=== PATIENT | female | born 1965 | race Caucasian/White ===

== ENCOUNTER 2018-02-05 13:20 | Emergency (ER) | payer OTHER ==
[~2018-02-05] VITALS: Ht 149.9 cm; Wt 58.1 kg
--- NOTE | 2018-02-05 13:29 | ED GI/GU/ABDOMINAL COMPLAINT ---
History of Present Illness General Chief Complaint: Abdominal Pain/Flank Pain Stated Complaint: RT SIDED ABD PAIN Source: patient Exam Limitations: no limitations Vital Signs & Intake/Output Vital Signs & Intake/Output Vital Signs Date Time Temp Pulse Resp B/P B/P Pulse O2 O2 Flow FiO2 Mean Ox Delivery Rate 02/05 1846 98.1 72 18 136/68 98 Room Air 02/05 1843 97.6 69 18 129/60 99 Room Air 02/05 1645 97.8 74 16 144/77 99 Room Air 02/05 1322 97.8 90 16 96 Room Air Allergies Coded Allergies: Sulfa (Sulfonamide Antibiotics) (Severe, SWELLING 02/05/18) Reconcile Medications Hydrocodone/Acetaminophen (Greenwood 5-325 Tablet) 5 MG-325 MG TABLET 1-2 TAB PO Q4-6 PRN PRN pain Ibuprofen 800 MG TABLET 1 TAB PO TID PRN mild to moderate pain Ondansetron (Zofran Odt) 4 MG TAB.RAPDIS 1 TAB SL TID PRN nausea Triage Note: 52 Y/O FEMALE C/O RLQ PAIN SINCE 0500 THIS MORNING, WOKE PT FROM SLEEP. PT STATES THE PAIN WRAPS INTO R GROIN AND R FLANK. +NAUSEA YESTERDAY. REPORTS POOR APPETITE/PO INTAKE TODAY. PAIN WORSE WITH URINATION PER PT. APPEARS UNCOMFORTABLE. AFEBRILE. Triage Nurses Notes Reviewed? yes ? n Is pt currently ? No Onset: Abrupt Duration: hour(s): (8) Timing: no prior history Quality/Severity: sharpness Severity Numbers: 7 Location: right lower quadrant Radiation: no radiation Activities at Onset: none Prior Abdominal Problems: none Past Sexual History: Unobtainable at this time No Modifying Factors: none HPI: Patient is a 52-year-old female presenting to the emergency department with chief complaint of right lower quadrant pain that began suddenly this morning after she woke up. Pain is sharp and stabbing and nonradiating. Positive nausea but no vomiting. Denies taking anything to help with pain. Pain is moderate. No diarrhea. Positive dysuria. No hematuria. No history kidney stone. (Eloina Arita) Past History Travel History Traveled to [place] past 21 day No Medical History Any Pertinent Medical History? 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 No (Eloina Arita) Review of Systems Review of Systems Constitutional: Reports: no symptoms. Comments Review of systems: See HPI, All other systems negative. Constitutional, no chills fever or weight loss HEENT: No visual changes no sore throat no congestion Cardiovascular: No chest pain ,palpitation , orthopnea or ankle swelling Skin, no jaundice no rashes Respiratory: No dyspnea cough sputum or hemoptysis GI: no vomiting : No dysuria No hematuria Muscle skeletal: no back pain, no neck pain, Neurologic: No numbness no confusion no headches Psych: No stress anxiety or depression,. Heme/endocrine: No bruising no bleeding no polyuria or polydipsia Immunology: No splenectomy or history of AIDS (Eloina Arita) Physical Exam Physical Exam General Appearance: alert, awake, appears uncomfortable Gastrointestinal: tenderness Comments: Well-developed well-nourished person in no acute distress HEENT: Atraumatic, normocephalic Neck: Normal inspection Back: Nontender, no CVA tenderness. Cardiovascular: Regular rate and rhythms no murmurs rubs or gallops Respiratory: Chest nontender. No respiratory distress.breath sounds clear to auscultation bilaterally Abdomen: Soft, tender to palpation over the right lower quadrant with guarding, positive rebound tenderness. Nondistended, no appreciable organomegaly. Normal bowel sounds. No ascites Extremity: No edema Neuro: Alert oriented x3 Skin: No appreciable rash on exposed skin, skin is warm and dry. Psych: Mood and affect is normal, memory and judgment is normal. Core Measures ACS in differential dx? No Sepsis Present: No Sepsis Focused Exam Completed? No (Eloina Arita) Progress Differential Diagnosis: appendicitis, biliary colic, cholecystitis, gastritis, hepatitis, hernia, ovarian cyst, UTI/pyelo Plan of Care: Orders Procedure Date/time Status URINALYSIS 02/05 1329 Complete C-REACTIVE PROTEIN 02/05 1329 Complete COMPREHENSIVE METABOLIC PANEL 02/05 1329 Complete CBC WITHOUT DIFFERENTIAL 02/05 1329 Complete Laboratory Tests 02/05/18 1403: Anion Gap 11, Estimated GFR > 60, BUN/Creatinine Ratio 21.4, Glucose 80, Calcium 9.5, Total Bilirubin 0.7, AST 24, ALT 24, Alkaline Phosphatase 66, C-Reactive Prot, Quant 1.1 H, Total Protein 7.7, Albumin 4.4, Globulin 3.3, Albumin/ Globulin Ratio 1.3, CBC w Diff NO MAN DIFF REQ, RBC 4.00 L, MCV 87.9, MCH 29.6, MCHC 33.7, RDW 13.0, MPV 7.7, Gran % 72.1, Lymphocytes % 20.4 L, Monocytes % 6.6, Eosinophils % 0.8, Basophils % 0.1, Absolute Granulocytes 7.1 H, Absolute Lymphocytes 2.0, Absolute Monocytes 0.6, Absolute Eosinophils 0.1, Absolute Basophils 0, Urine Color YEL, Urine Clarity CLEAR, Urine pH 6.0, Ur Specific [place] <= 1.005, Urine Protein NEG, Urine Ketones NEG, Urine Nitrite NEG, Urine Bilirubin NEG, Urine Urobilinogen 0.2, Ur Leukocyte Esterase NEG, Ur Microscopic EXAM NOT REQUIRED, Urine Hemoglobin NEG, Urine Glucose NEG Patient feeling improved after IV pain medication. She is informed of CAT scan and ultrasound results. She'll follow up with her PIPELINER. started on pain medication, nausea medication and anti-inflammatories at home. Patient nontoxic. No signs of appendicitis. Diagnostic Imaging: Viewed by Me: CT Scan, Ultrasound. Discussed w/RAD: CT Scan, Ultrasound. Radiology Impression: PATIENT: PROSPER TREVINO PRESENT AGE : 52 PATIENT ACCOUNT NO: [id number] : 67 LOCATION: [facility] ORDERING PHYSICIAN: Eloina REN SERVICE DATE: 02/05/186765 EXAM TYPE: CAT - CT ABD & PELVIS W IV CONTRAST EXAMINATION: CT ABDOMEN AND PELVIS WITH CONTRAST CLINICAL INFORMATION: Evaluate for appendicitis, pain COMPARISON: None TECHNIQUE : Multidetector volumetric imaging was performed of the abdomen and pelvis following IV administration of 100 mL of Omnipaque 300 intravenous contrast. Sagittal and coronal reformatted images were obtained on the technologist's workstation. FINDINGS: The lung bases are grossly clear. Upper abdomen Liver and spleen are felt to be within normal limits. Status post cholecystectomy. Pancreas within normal limits. Mild intrahepatic ductal dilatation and mild prominence of the common duct however the patient is status post cholecystectomy. Area the adrenal glands is unremarkable. There is no bulky adenopathy. There is no free fluid here. The bowel pattern is within normal limits. The kidneys are in the early nephrographic phase. Within normal limits. There is a metallic density between the superior aspect of the right kidney in the liver which may represent a migrated surgical clip. CT PELVIS: The appendix is felt to be within normal limits. There is cystic change in the right adnexa. This is measuring 4.4 x 3.2 cm. Minimal surrounding fluid is noted. The uterus is central. IMPRESSION: The appendix is within normal orbits. The bowel pattern is within normal limits. Cystic change in the right adnexa which may well be ovarian. Minimal surrounding fluid. Consider ultrasound Probable migrated metallic clip is described in between the superior aspect of the right kidney and the liver. DICTATED BY: Karlos Bateman MD DATE/TIME DICTATED:02/05/181538 PROPERTY ANALYST:ESAU DATE/TIME TRANSCRIBED:02/05/181538 CONFIDENTIAL, DO NOT COPY WITHOUT APPROPRIATE AUTHORIZATION. <Electronically signed in Other Vendor System> SIGNED BY: Karlos Bateman MD 02/05/18 1550, PATIENT: PROSPER TREVINO PRESENT AGE: 52 PATIENT ACCOUNT NO: [id number] : 67 LOCATION: [facility] ORDERING PHYSICIAN: Eloina REN SERVICE DATE: 02/05/18-155 EXAM TYPE: US - US-TRANSVAGINAL US PELVIC TRANSVAGINAL CLINICAL INFORMATION: Right lower quadrant pain. COMPARISON: Abdominal CT performed earlier the same day. TECHNIQUE: Real-time transabdominal and then transvaginal ultrasound are performed, the latter for better visualization. Grayscale, color Doppler, and spectral Doppler analysis are performed. FINDINGS: The uterus is anteroverted and measures 8.1 x 4.6 x 4.8 cm. Cervical length is 3.1 cm. Endometrial stripe thickness is 0.5 cm. Total uterine volume is 93.1 mL. Right ovary measures 4.1 x 3.1 x 5.2 cm with a volume of 34.2 mL. There is a 3.2 x 2.3 x 3.2 cm complex cyst exhibiting low level echoes within the right ovary that may reflect a hemorrhagic cyst or endometrioma. The right ovary exhibits normal arterial and venous waveforms. The left ovary is not identified. IMPRESSION: - There is a 3.2 x 2.3 x 3.2 cm complex right ovarian cyst exhibiting low level echoes that may reflect a hemorrhagic cyst or endometrioma. There is no sonographic evidence of active ovarian torsion. - The left ovary is not visualized. DICTATED BY: Karlos Mclean MD DATE/TIME DICTATED :02/05/181805 PROPERTY ANALYST:ESAU DATE/TIME TRANSCRIBED:02/05/181805 CONFIDENTIAL, DO NOT COPY WITHOUT APPROPRIATE AUTHORIZATION. < Electronically signed in Other Vendor System> SIGNED BY: Karlos Mclean MD 02/05/181813 Initial ED EKG: none (Eloina Arita) Departure Departure Time of Disposition: 1821 Disposition: HOME OR SELF CARE Condition: Stable Clinical Impression Primary Impression: Ovarian cyst Qualifiers: Laterality: right Qualified Code: N83.201 - Unspecified ovarian cyst, right side Referrals: Unknown Homero Escalera MD Additional Instructions: Follow-up with PIPELINER, call to make an appointment for next 5-7 days. Increase fluids. Take ibuprofen to help with pain and inflammation, for severe pain take Greenwood as prescribed. Take Zofran as prescribed for nausea. Return for worsening symptoms or concerns. Departure Forms: Customer Survey General Discharge Information Prescriptions: Current Visit Scripts Hydrocodone/Acetaminophen ([place]wood 5-325 Tablet) 1-2 TAB PO Q4-6 PRN PRN pain #10 TAB Ondansetron (Zofran Odt) 1 TAB SL TID PRN nausea #10 TAB Ibuprofen 1 TAB PO TID PRN mild to moderate pain #20 TAB (Eloina Arita) PA/COMMERCIAL CREDIT HEAD Co-Sign Statement Statement: ED Attending supervision documentation- [] I saw and evaluated the patient. I have also reviewed all the pertinent lab results and diagnostic results. I agree with the findings and the plan of care as documented in the PA's/COMMERCIAL CREDIT HEAD's documentation. [x] I have reviewed the ED Record and agree with the PA's/COMMERCIAL CREDIT HEAD's documentation. [] Additions or exceptions (if any) to the PAs/COMMERCIAL CREDIT HEAD's note and plan are summarized below: [] (Karlos Miller DO
[2018-02-05 14:20] LABS: ABSOLUTE BASOPHIL COUNT 0 /CUMM (0.0-0.2); ABSOLUTE EOSINOPHIL COUNT 0.1 /CUMM (0.0-0.7); ABSOLUTE GRANULOCYTE CT 7.1 /CUMM (1.4-6.5); ABSOLUTE MONOCYTE COUNT 0.6 /CUMM (0.10-0.60); BASOPHIL % 0.1 % (0.0-2.0); EOSINOPHIL % 0.8 % (0-5); GRANULOCYTE % 72.1 % (42.2-75.2); HEMATOCRIT 35.1 % (37-47); MEAN CORPUSCULAR HGB 29.6 PG (27.0-31.0); MEAN CORPUSCULAR HGB CONC 33.7 G/DL (33.0-37.0); MEAN CORPUSCULAR VOLUME 87.9 FL (81.0-99.0); MEAN PLATELET VOLUME 7.7 FL (7.4-10.4); PLATELET COUNT 341 /CUMM (130-400); WHITE BLOOD CELL COUNT 9.8 /CUMM (4.8-10.8)
--- NOTE | 2018-02-05 15:50 | CT SCAN REPORT ---
EXAMINATION: CT ABDOMEN AND PELVIS WITH CONTRAST CLINICAL INFORMATION: Evaluate for appendicitis, pain COMPARISON: None TECHNIQUE: Multidetector volumetric imaging was performed of the abdomen and pelvis following IV administration of 100 mL of Omnipaque 300 intravenous contrast. Sagittal and coronal reformatted images were obtained on the technologist's workstation. FINDINGS: The lung bases are grossly clear. Upper abdomen Liver and spleen are felt to be within normal limits. Status post cholecystectomy. Pancreas within normal limits. Mild intrahepatic ductal dilatation and mild prominence of the common duct however the patient is status post cholecystectomy. Area the adrenal glands is unremarkable. There is no bulky adenopathy. There is no free fluid here. The bowel pattern is within normal limits. The kidneys are in the early nephrographic phase. Within normal limits. There is a metallic density between the superior aspect of the right kidney in the liver which may represent a migrated surgical clip. CT PELVIS: The appendix is felt to be within normal limits. There is cystic change in the right adnexa. This is measuring 4.4 x 3.2 cm. Minimal surrounding fluid is noted. The uterus is central. IMPRESSION: The appendix is within normal orbits. The bowel pattern is within normal limits. Cystic change in the right adnexa which may well be ovarian. Minimal surrounding fluid. Consider ultrasound Probable migrated metallic clip is described in between the superior aspect of the right kidney and the liver.
--- NOTE | 2018-02-05 18:14 | ULTRASOUND REPORT ---
US PELVIC TRANSVAGINAL CLINICAL INFORMATION: Right lower quadrant pain. COMPARISON: Abdominal CT performed earlier the same day. TECHNIQUE: Real-time transabdominal and then transvaginal ultrasound are performed, the latter for better visualization. Grayscale, color Doppler, and spectral Doppler analysis are performed. FINDINGS: The uterus is anteroverted and measures 8.1 x 4.6 x 4.8 cm. Cervical length is 3.1 cm. Endometrial stripe thickness is 0.5 cm. Total uterine volume is 93.1 mL. Right ovary measures 4.1 x 3.1 x 5.2 cm with a volume of 34.2 mL. There is a 3.2 x 2.3 x 3.2 cm complex cyst exhibiting low level echoes within the right ovary that may reflect a hemorrhagic cyst or endometrioma. The right ovary exhibits normal arterial and venous waveforms. The left ovary is not identified. IMPRESSION: - There is a 3.2 x 2.3 x 3.2 cm complex right ovarian cyst exhibiting low level echoes that may reflect a hemorrhagic cyst or endometrioma. There is no sonographic evidence of active ovarian torsion. - The left ovary is not visualized.
[2018-02-05] MEDS ORDERED: NORCO 5-325 TA1 EACH PO (18:24)
[2018-02-05] MEDS ORDERED: IBUPROFEN800 M1 PO (18:24)
[2018-02-05] MEDS ORDERED: ZOFRAN ODT4 M1 SL (18:24)
[2018-02-05 18:46] VITALS: BP 136/68
== END 2018-02-05 19:02 ==
LOC: ERH 13:20
PROVIDERS: Physician Assistant
DX: N83.201 Unspecified ovarian cyst, right side (principal)
CPT/HCPCS: 74177; 81003; 96361; 96374; 96375; 96376; J1885; J2405